=== PATIENT | female | born 1960 | race American Indian/Alaskan Native ===

== ENCOUNTER 2021-10-28 17:31 | Emergency (ER) | payer MEDICARE ==
--- NOTE | 2021-10-28 19:56 | Emergency Department Report ---
ED General Adult HPI - General Chief complaint: Medical Clearance Stated complaint: My thoughts are racing. I have blood in my poop. Time Seen by Provider: 10/28/21 19:46 Source: patient, RN notes reviewed Mode of arrival: Ambulatory Limitations: No Limitations - History of Present Illness Initial comments: The patient is a 61-year-old female. Her past medical history includes renal insufficiency, does not know her baseline GFR, BMI 39.5, and psychiatric disease. The patient presents to the ER today with a complaint of painless racing thoughts. She is not homicidal suicidal. She is not experiencing hallucinations. She does not want to overdose. She was able to recall the names of her psychiatric medications, including mirtazapine and Seroquel. She states that she cannot remember who prescribes her these medications. She denies headache, neck pain, chest pain, abdominal pain, shortness of breath and dysuria. She also reports painful defecation, with occasional bloody stool. She states she does not take blood thinning medications. To the best of her recollection, she has not had a colonoscopy. Improves with: none Worsens with: none - Related Data Previous Rx's Medication Instructions Recorded Last Taken Type Hydrocortisone [Anusol-Hc 2.5% TOP 30 gm RC QHS PRN #5 cream..g. 10/28/21 Unknown Rx CREAM] Magnesium Oxide [Mag-Ox] 400 mg PO QDAY #15 tablet 10/28/21 Unknown Rx Potassium Chloride 20 meq PO QDAY #7 packet 10/28/21 Unknown Rx Allergies Allergy/AdvReac Type Severity Reaction Status Date / Time No Known Allergies Allergy Unverified 10/28/21 17:50 ED Review of Systems ROS: Stated complaint: HIGH BLOOD PRESSURE AND BIPOLAR Other details as noted in HPI Constitutional: denies: fever Eyes: denies: eye discharge ENT: denies: epistaxis Respiratory: denies: cough Cardiovascular: denies: chest pain Gastrointestinal: other (Brown stool with red blood). denies: abdominal pain Psychiatric: anxiety. denies: auditory hallucinations, visual hallucinations, homicidal thoughts, suicidal thoughts ED Past Medical Hx - Medications Home Medications: Home Medications Medication Instructions Recorded Confirmed Last Taken Type Hydrocortisone [Anusol-Hc 2.5% TOP 30 gm RC QHS PRN #5 cream..g. 10/28/21 Unknown Rx CREAM] Magnesium Oxide [Mag-Ox] 400 mg PO QDAY #15 tablet 10/28/21 Unknown Rx Potassium Chloride 20 meq PO QDAY #7 packet 10/28/21 Unknown Rx ED Physical Exam - General Limitations: No Limitations, Other (Chaperoned by Chinyere Pierre) General appearance: alert, anxious, obese - Head Head exam: Present: atraumatic, normocephalic - Eye Eye exam: Present: normal appearance, EOMI. Absent: nystagmus - ENT ENT exam: Present: normal exam, normal orophraynx, mucous membranes moist, normal external ear exam - Neck Neck exam: Present: normal inspection, full ROM. Absent: tenderness, meningismus - Respiratory Respiratory exam: Present: normal lung sounds bilaterally. Absent: respiratory distress, wheezes, rales, rhonchi, stridor - Cardiovascular Cardiovascular Exam: Present: regular rate, normal rhythm, normal heart sounds. Absent: bradycardia, tachycardia, irregular rhythm, systolic murmur, diastolic murmur, rubs, gallop - GI/Abdominal GI/Abdominal exam: Present: soft. Absent: distended, tenderness, guarding, rebound, rigid, pulsatile mass - Rectal Rectal exam: Present: normal inspection, other (Brown stool, guaiac negative, anal fissure noted at 6:00, external hemorrhoids, chaperoned by Matt Pierre) - Extremities Exam Extremities exam: Present: normal inspection, full ROM, pedal edema (1+ edema bilateral lower extremity), other (2+ pulses noted in the bilateral upper and lower extremities. There is no palpable cord. negative Homans sign. Muscular compartments are soft. The pelvis is stable.). Absent: calf tenderness - Back Exam Back exam: Present: normal inspection, full ROM. Absent: tenderness, CVA tenderness (R), CVA tenderness (L), paraspinal tenderness, vertebral tenderness - Neurological Exam Neurological exam: Present: alert, oriented X3, other (No facial droop. Tongue midline. Extraocular movements intact bilaterally. Facial sensation intact to light touch in V1, V2, V3 distribution bilaterally. 5 and a 5 strength in 4 extremities. Sensation intact to light touch in 4 extremities.). Absent: motor sensory deficit - Psychiatric Psychiatric exam: Present: anxious. Absent: homicidal ideation, suicidal ideation - Skin Skin exam: Present: warm, dry, intact, normal color. Absent: rash ED Course Vital Signs 10/28/21 17:48 Temperature 98.6 F Pulse Rate 92 H Respiratory 18 Rate Blood Pressure 146/90 O2 Sat by Pulse 98 Oximetry - Reevaluation(s) Reevaluation #1: 10/28/21 21:29 Differential diagnosis, including but not limited to: Chronic renal insufficiency, obesity, encounter for medical screening examination, encounter for behavioral health screening examination, anal fissure Assessment and plan: 61-year-old female, who was afebrile, with reassuring vital signs, who is clinically sober with a GCS of 15, who is not homicidal or suicidal, who exhibits a lucid and rational decision making thought process, and does not meet criteria for 1013 hold or involuntary hold, with a complaint today of racing thoughts, and brown stool with red blood. In terms of the patient's racing thoughts, she can be redirected, she is not homicidal suicidal, she is awake, alert, oriented, sober and walks with a steady gait with a GCS of 15. TSH unremarkable, serum toxicology study unremarkable, patient reports a history of chronic renal insufficiency, mild hypokalemia will be repleted. The patient can follow-up with her outpatient psychiatrist or mental health specialist. In terms of her chronic renal insufficiency, and mild hypokalemia, she can follow-up with an outpatient primary care doctor or her personnel research scientist. We will also refer the patient to outpatient nephrology/primary care. In terms of the patient's history of brown stool with red blood, she is guaiac negative on my rectal examination, CBC acceptable at this time, she appears to have an anal fissure with external hemorrhoids. Diet, lifestyle modification, sitz bath, Anusol, outpatient GI follow-up. 10/28/21 22:07 Patient found to have magnesium of 1.5. Oral repletion ordered. This can be corrected with outpatient diet lifestyle modification as well as oral supplementation. Patient will be given a list of local homeless shelters. She will also be given a list of local outpatient psychiatric resources. The kenneth nt reported to the nursing staff that she is homeless and does not have a place to go. However, she presents as awake, alert, oriented with decision-making capacity, and is suitable for discharge with outpatient resources. ED Medical Decision Making - Lab Data Result diagrams: 10/28/21 20:16 10/28/21 20:16 Vital Signs 10/28/21 17:48 Temperature 98.6 F Pulse Rate 92 H Respiratory 18 Rate Blood Pressure 146/90 O2 Sat by Pulse 98 Oximetry Lab Results 10/28/21 10/28/21 10/28/21 Range/Units 20:16 20:16 20:16 WBC 4.4 L (4.5-11.0) K/mm3 RBC 3.78 (3.65-5.03) M/mm3 Hgb 9.5 L (10.1-14.3) gm/dl Hct 30.4 (30.3-42.9) % MCV 81 (79-97) fl MCH 25 L (28-32) pg MCHC 31 (30-34) % RDW 15.9 H (13.2-15.2) % Plt Count 185 (140-440) K/mm3 Sodium 141 (137-145) mmol/L Potassium 2.9 L* (3.6-5.0) mmol/L Chloride 100.9 (98-107) mmol/L Carbon Dioxide 24 (22-30) mmol/L Anion Gap 19 mmol/L BUN 46 H (7-17) mg/dL Creatinine 3.0 H (0.6-1.2) mg/dL Estimated GFR 19 ml/min BUN/Creatinine Ratio 15 % Glucose 84 (65-100) mg/dL Calcium 9.6 (8.4-10.2) mg/dL Total Bilirubin < 0.20 (0.1-1.2) mg/dL AST 14 (5-40) units/L ALT 10 (7-56) units/L Alkaline Phosphatase 150 H (35-129) units/L Total Creatine Kinase 222 H (30-135) units/L Total Protein 8.1 (6.3-8.2) g/dL Albumin 4.4 (3.9-5) g/dL Albumin/Globulin Ratio 1.2 % TSH 2.360 (0.270-4.200) mlU/mL Salicylates (2.8-20.0) mg/dL Acetaminophen (10.0-30.0) ug/mL Plasma/Serum Alcohol (0-0.07) % 10/28/21 10/28/21 10/28/21 Range/Units 20:16 20:16 20:16 WBC (4.5-11.0) K/mm3 RBC (3.65-5.03) M/mm3 Hgb (10.1-14.3) gm/dl Hct (30.3-42.9) % MCV (79-97) fl MCH (28-32) pg MCHC (30-34) % RDW (13.2-15.2) % Plt Count (140-440) K/mm3 Sodium (137-145) mmol/L Potassium (3.6-5.0) mmol/L Chloride (98-107) mmol/L Carbon Dioxide (22-30) mmol/L Anion Gap mmol/L BUN (7-17) mg/dL Creatinine (0.6-1.2) mg/dL Estimated GFR ml/min BUN/Creatinine Ratio % Glucose (65-100) mg/dL Calcium (8.4-10.2) mg/dL Total Bilirubin (0.1-1.2) mg/dL AST (5-40) units/L ALT (7-56) units/L Alkaline Phosphatase (35-129) units/L Total Creatine Kinase (30-135) units/L Total Protein (6.3-8.2) g/dL Albumin (3.9-5) g/dL Albumin/Globulin Ratio % TSH (0.270-4.200) mlU/mL Salicylates < 0.3 L (2.8-20.0) mg/dL Acetaminophen 5.0 L (10.0-30.0) ug/mL Plasma/Serum Alcohol < 0.01 (0-0.07) % Critical care attestation.: If time is entered above; I have spent that time in minutes in the direct care of this critically ill patient, excluding procedure time. ED Disposition Clinical Impression: Renal insufficiency, Hypokalemia, Anal fissure, Encounter for behavioral health screening, Hypomagnesemia Disposition: 01 HOME / SELF CARE / HOMELESS Is pt being admited?: No Does the pt Need Aspirin: No Condition: Good Additional Instructions: Recommend that patient not take Motrin, ibuprofen, Naprosyn, Aleve, alcohol, or tobacco. Drink 4 cups of water per day, avoid consumption of unprocessed foods, and consume plenty of fiber, vegetables, and lean protein. Patient should consume foods that are higher in potassium, such as bananas, avocado, and potato. Do recommend that the patient follow-up with a primary care doctor or personnel research scientist for repeat checkup and evaluation for chronic renal insufficiency, and hypokalemia, and the next [address] Rivera is a local personnel research scientist/kidney doctor. Dr Braden Hodges is a local primary care doctor. Patient is also found to have evidence of anal fissure, and external hemorrhoid. Patient should consume plenty of water, and consume plenty of fiber, vegetables and lean protein, patient may also benefit from sitz bath's. If the patient has not had a colonoscopy in the past 5 to 10 years, she should follow-up with an outpatient business office director within the next 4 to 6 weeks for consideration of outpatient colonoscopy, to exclude cancer, tumor, malignancy. [facility] is a local GI practice. Please return to the emergency room right away with new pain, worsening pain, migration of pain, projectile vomiting, change in mental status, confusion, inability to tolerate liquid feeds, homicidality suicidality, or any new, worsened or different symptoms not present on the initial emergency room evaluation Prescriptions: Hydrocortisone [Anusol-Hc 2.5% TOP CREAM] 30 gm RC QHS PRN #5 cream..g. PRN Reason: anal fissure Potassium Chloride 20 meq PO QDAY #7 packet Referrals: JILLIAN WINKLER [Other] - 3-5 Days MICHAEL RIVERA MD [Staff Physician] - 3-5 Days PIA HODGES MD [Staff Physician] - 3-5 Days [facility] [Provider Group] - 3-5 Days Forms: Accompanied Note
[2021-10-28 20:45] LABS: Hematocrit 30.4 % (30.3-42.9); Hemoglobin 9.5 gm/dl (10.1-14.3); Mean Corpuscular HGB Conc 31 % (30-34); Mean Corpuscular Volume 81 fl (79-97); Platelet Count 185 K/mm3 (140-440); Red Blood Count 3.78 M/mm3 (3.65-5.03); Red Cell Distribution Width 15.9 % (13.2-15.2)
[2021-10-28 21:06] LABS: Alanine Aminotransferase 10 units/L (7-56); Albumin 4.4 g/dL (3.9-5); BUN/Creatinine Ratio 15; Blood Urea Nitrogen 46 mg/dL (7-17); Calcium 9.6 mg/dL (8.4-10.2); Hemolysis Index 5
[2021-10-28] MEDS ORDERED: POTASSIUM CHLORIDE ER 20 MEQ TAB PO ONE (21:26)
[2021-10-28] MEDS ORDERED: MAGNESIUM OXIDE 400 MG TAB PO STA (22:06)
[2021-10-29 00:49] VITALS: BP 136/81
== END 2021-10-29 00:48 | disposition home or self-care (01) ==
LOC: ED 17:31
DX: N28.9 Disorder of kidney and ureter, unspecified (principal); E87.6 Hypokalemia; K60.2 Anal fissure, unspecified; F41.9 Anxiety disorder, unspecified; E83.42 Hypomagnesemia
CPT/HCPCS: 36415; 80053; 80320; 82550; 83735; 84443; 85027; 99284; G0480